=== PATIENT | male | born 1980 | race Caucasian/White ===

== ENCOUNTER 2019-05-25 11:58 | Emergency (ER) | payer OTHER ==
[2019-05-25 12:17] VITALS: RESP 18
--- NOTE | 2019-05-25 12:59 | ED ---
Upper Extremity HPI - General Chief Complaint: Extremity Injury, Upper Stated Complaint: [facility] - rt shoulder, neck, hand injury Time Seen by Provider: 05/25/19 12:42 Source: patient, RN notes reviewed Mode of arrival: ambulatory Limitations: no limitations - History of Present Illness Initial Comments: 38-year-old male presents emergency Department from [facility] chief complaint of neck right arm pain. Patient states that he's been flipping piece of carpet parts up onto a stack right to left. Patient states that he was sent here for further evaluation. He states initially felt a pop numbness and weakness to his arm but states that things are resolving as directed normal. Patient is right-hand dominant denies any chest pain, shortness breath no headache no dizziness. Patient states never any like this in the past. Patient states she does very repetitious work all day long - Related Data Home Medications Medication Instructions Recorded Confirmed Levothyroxine Sodium [Synthroid] 200 mcg PO DAILY 05/25/19 05/25/19 Sertraline [Zoloft] 100 mg PO HS 05/25/19 05/25/19 Trazodone (Unknown Dose) 1 tab PO HS 05/25/19 05/25/19 Previous Rx's Medication Instructions Recorded Ibuprofen [Motrin] 600 mg PO Q8HR PRN #30 tab 05/25/19 Methocarbamol [Robaxin] 500 mg PO TID PRN #15 tab 05/25/19 Allergies Allergy/AdvReac Type Severity Reaction Status Date / Time No Known Allergies Allergy Verified 05/25/19 12:55 Review of Systems ROS Statement: Those systems with pertinent positive or pertinent negative responses have been documented in the HPI. ROS Other: All systems not noted in ROS Statement are negative. Past Medical History Past Medical History: Thyroid Disorder History of Any Multi-Drug Resistant Organisms: None Reported Past Surgical History: Orthopedic Surgery Past Psychological History: Depression Smoking Status: Never smoker Past Alcohol Use History: None Reported Past Drug Use History: None Reported General Exam Limitations: no limitations General appearance: alert, in no apparent distress Head exam: Present: atraumatic, normocephalic, normal inspection Eye exam: Present: normal appearance, PERRL, EOMI. Absent: scleral icterus, conjunctival injection, periorbital swelling ENT exam: Present: normal exam, normal oropharynx, mucous membranes moist Neck exam: Present: normal inspection, tenderness, full ROM. Absent: meningismus, lymphadenopathy Respiratory exam: Present: normal lung sounds bilaterally. Absent: respiratory distress, wheezes, rales, rhonchi, stridor, chest wall tenderness Cardiovascular Exam: Present: regular rate, normal rhythm, normal heart sounds. Absent: systolic murmur, diastolic murmur, rubs, gallop, clicks Extremities exam: Present: other (Bilateral upper extremity swelling range of m otion neurovascular intact full strength equal bilaterally, patient reports pain with certain range of motion.) Neurological exam: Present: alert, oriented X3, CN II-XII intact, reflexes normal. Absent: motor sensory deficit Skin exam: Present: warm, dry, intact, normal color. Absent: rash Course Vital Signs 05/25/19 05/25/19 12:13 14:01 Temperature 97.8 F 97.4 F L Pulse Rate 59 L 54 L Respiratory 18 18 Rate Blood Pressure 117/72 118/71 O2 Sat by Pulse 97 96 Oximetry Medical Decision Making - Medical Decision Making 38-year-old male present emergency from for right arm pain. Patient has some radicular symptoms from cervical region. Patient has full strength and neurovascular intact. X-ray reviewed shows foraminal encroachment. Patient will follow-up with [facility] and Dr. Phillips. Disposition Clinical Impression: Cervical radiculopathy, Strain of right trapezius muscle Disposition: HOME SELF-CARE Condition: Stable Instructions (If sedation given, give patient instructions): Cervical Radiculopathy (ED) Additional Instructions: Please return to the Emergency Department if symptoms worsen or any other concerns. Prescriptions: Ibuprofen [Motrin] 600 mg PO Q8HR PRN #30 tab PRN Reason: Pain Methocarbamol [Robaxin] 500 mg PO TID PRN #15 tab PRN Reason: muscle spasms Is patient prescribed a controlled substance at d/c from ED?: No Referrals: Alba Merrill DO [Primary Care Provider] - 1-2 days Maxime Gutierrez DO [Doctor of Osteopathic Medicine] - 1-2 days Time of Disposition: 14:04
--- NOTE | 2019-05-25 13:40 | XR ---
EXAMINATION TYPE: XR cervical spine comp DATE OF EXAM: 05/25/2019 COMPARISON: NONE HISTORY: Pain TECHNIQUE: Four views are submitted. FINDINGS: The odontoid is intact. There are no compression deformities. The prevertebral soft tissue structur es are within normal limits. Lung apices clear. No compression deformities. Could not exclude mild f oraminal encroachment C4-5 and C5-C6. IMPRESSION: 1. Correlate for foraminal encroachment C4-5 and C5-C6. Follow-up MRI recommended..
[2019-05-25 14:16] VITALS: BP 136/89; PULSE 102; TEMP 98
== END 2019-05-25 14:10 | disposition home or self-care (01) ==
LOC: EC 11:58
DX: S46.811A Strain of other muscles, fascia and tendons at shoulder and upper arm level, right arm, initial encounter (principal); M54.12 Radiculopathy, cervical region; M79.89 Other specified soft tissue disorders; E07.9 Disorder of thyroid, unspecified; F32.9 Major depressive disorder, single episode, unspecified; Z79.890 Hormone replacement therapy; Z79.899 Other long term (current) drug therapy; X50.3XXA Overexertion from repetitive movements, initial encounter; Y93.89 Activity, other specified; Y92.69 Other specified industrial and construction area as the place of occurrence of the external cause; Y99.0 Civilian activity done for income or pay
CPT/HCPCS: 72050; 99283

== ENCOUNTER → 2019-06-05 | Outpatient (CLI) | payer OTHER ==
--- NOTE | 2019-06-07 13:19 | MR ---
MRI CERVICAL SPINE: CLINICAL HISTORY: Strain injury per order. Headache with dizziness and neck and shoulder pain for 2 w eeks after injury per patient. TECHNIQUE: Multiplanar, multisequence imaging of the cervical spine is performed without IV contrast. COMPARISON: Cervical spine x-ray May 25, 2019. FINDINGS: Sagittal images of the cervical spine show the craniocervical junction to appear within nor mal limits. The cervical and upper thoracic spinal cord is normal in course, caliber, and signal. Th ere is persistent grade 1 retrolisthesis of C5 on C6 and to lesser degree C6-C7. The vertebral body and intravertebral disk heights are normal. The bone marrow signal intensity is within normal limits . Axial images show the C2-C3 and C3-C4 level to appear within normal limits. Axial images at C4-C5 levels with mild broad-based left paracentral disc protrusion mildly facing ant erior thecal sac and causing [id number] left-sided neural foraminal narrowing. Axial images at C5-C6 level broad-based central disc protrusion effacing anterior thecal sac and caus ing mild left-sided neural foraminal narrowing. Axial images at C6-C7 level shows central disc protrusion effacing anterior thecal sac and causing mi [id number] right-sided neural foraminal narrowing. Axial images at C7-T1 level are felt within normal limits. IMPRESSION: Multilevel spondylolisthesis and degenerative change C4-C5 through C6-C7 levels as detail ed above.
== END | disposition home or self-care (01) ==
LOC: RADMRIMAIN 20:39
PROVIDERS: ATTEND Emergency Medicine
DX: M43.12 Spondylolisthesis, cervical region (principal); M47.812 Spondylosis without myelopathy or radiculopathy, cervical region
CPT/HCPCS: 72141